=== PATIENT | male | born 1955 | race Caucasian/White ===

== ENCOUNTER → 2016-10-06 | Outpatient (CLI) | payer BC ==
[2016-10-07 14:16] LABS: Alternaria alternata IgE <0.35 kU/L (<0.35); Asperg. fumagatus IgE <0.35 kU/L (<0.35); Asperg. fumagatus IgE Class CLASS 0; Birch(Com.Silvr) IgE Class CLASS III; Cat Epith & Dander IgE <0.35 kU/L (<0.35); Cat Epith & Dander IgE Class CLASS 0; Clad herbarum IgE <0.35 kU/L (<0.35); Clad herbarum IgE Class CLASS 0; Common Ragweed IgE Class CLASS 0; Dermato. Pteronyssinus Class CLASS 0; Dermato. Pteronyssinus IgE <0.35 kU/L (<0.35); Dermato. farinae IgE <0.35 kU/L (<0.35); Dermato. farinae IgE Class CLASS 0; Maple (Box Elder) IgE <0.35 kU/L (<0.35); Maple (Box Elder) IgE Class CLASS 0; Mountain Cedar IgE <0.35 kU/L (<0.35); Mountain Cedar IgE Class CLASS 0; Mouse Urine IgE Class CLASS 0; Mouse Urine Proteins,IgE <0.35 kU/L (<0.35); Mulberry IgE Class CLASS 0; Nettle IgE <0.35 kU/L (<0.35); Nettle IgE Class CLASS 0; Oak IgE <0.35 kU/L (<0.35); Penicillium notatum IgE Class CLASS 0; Rough Marshelder IgE <0.35 kU/L (<0.35); Rough Marshelder IgE Class CLASS 0; Timothy Grass IgE <0.35 kU/L (<0.35); Timothy Grass IgE Class CLASS 0; White Ash IgE Class CLASS 0
== END | disposition home or self-care (01) ==
LOC: LABWHC1 16:56
PROVIDERS: ATTEND Internal Medicine Endocrinology, Diabetes & Metabolism
DX: J45.909 Unspecified asthma, uncomplicated (principal)
CPT/HCPCS: 36415; 82103; 82104; 82785; 86001; 86003; 86606; 86609

== ENCOUNTER → 2017-12-08 | Outpatient (CLI) | payer BC ==
--- NOTE | 2017-12-08 16:59 | XR ---
EXAMINATION TYPE: XR chest 2V DATE OF EXAM: 12/08/2017 COMPARISON: Prior chest x-ray 01/23/2016 HISTORY: Shortness of breath TECHNIQUE: Frontal and lateral views of the chest are obtained. FINDINGS: There is improved aeration at the left lung base. Prominent lung volumes are noted. Patien t is post median sternotomy. Cardiomediastinal silhouette, pulmonary vascularity and [place] are within normal limits. Prominent lung lines suggest underlying COPD. Biapical pleural thickening is stable. IMPRESSION: No acute cardiopulmonary process.
== END | disposition home or self-care (01) ==
LOC: RADXRMAIN 15:49
PROVIDERS: ATTEND Internal Medicine Pulmonary Disease
DX: R06.02 Shortness of breath (principal)
CPT/HCPCS: 71046

== ENCOUNTER 2019-12-23 16:14 | Emergency (ER) | payer BC ==
--- NOTE | 2019-12-23 16:31 | ED ---
Abdominal Pain HPI - General Chief Complaint: Abdominal Pain Stated Complaint: Abd Pain Time Seen by Provider: 12/23/19 16:30 Source: patient Mode of arrival: ambulatory Limitations: no limitations - History of Present Illness Initial Comments: Patient is 64-year-old male presenting to emergency Department with chief complaint of abdominal pain. Patient reports the pain started around noon today and is gradually increasing severity. Patient states the pain is constant and is located in the periumbilical region without any radiation. Patient states the pain is "intense". Does report mild nausea earlier but no vomiting. States he had a bowel movement prior to arrival. States the pain is not related to by mouth intake. Denies any chest pain or shortness of breath. Does report drinking alcohol occasionally. Denies hematuria, hematochezia or melena. Denies dysuria, urgency or frequency. Denies testicular swelling pain or penile discharge. Denies any night sweats fevers or chills. Denies previous abdominal surgeries. Patient states that 2 people at his workplace were diagnosed with Legionella over the last 2 weeks. He does report a cough states that is his baseline secondary to COPD. He denies any diarrhea. - Related Data Home Medications Medication Instructions Recorded Confirmed Atorvastatin [Lipitor] 80 mg PO HS 12/23/19 12/23/19 Budesonide [Pulmicort] 0.5 mg INHALATION RT-BID 12/23/19 12/23/19 Montelukast [Singulair] 10 mg PO DAILY 12/23/19 12/23/19 Tamsulosin [Flomax] 0.4 mg PO DAILY 12/23/19 12/23/19 Varenicline [Chantix Starter Pack] 0.5 mg PO BID 12/23/19 12/23/19 amLODIPine [Norvasc] 5 mg PO HS 12/23/19 12/23/19 lisinopriL [Zestril] 2.5 mg PO DAILY 12/23/19 12/23/19 Previous Rx's Medication Instructions Recorded Aspirin 81 mg PO DAILY #30 chew 01/05/16 Metoprolol Tartrate [Lopressor] 50 mg PO BID #60 tab 01/05/16 Allergies Allergy/AdvReac Type Severity Reaction Status Date / Time No Known Allergies Allergy Verified 12/23/19 17:31 Review of Systems ROS Statement: Those systems with pertinent positive or pertinent negative responses have been documented in the HPI. ROS Other: All systems not noted in ROS Statement are negative. Past Medical History Past Medical History: COPD, Hyperlipidemia Additional Past Medical History / Comment(s): Coronary artery disease with left main involvement History of Any Multi-Drug Resistant Organisms: None Reported Past Surgical History: Orthopedic Surgery Additional Past Surgical History / Comment(s): vasectomy, ganglion cyst removed from wrist Past Anesthesia/Blood Transfusion Reactions: No Reported Reaction Past Psychological History: No Psychological Hx Reported Smoking Status: Current every day smoker Past Alcohol Use History: Occasional Past Drug Use History: None Reported - Past Family History Mother Family Medical History: No Reported History General Exam Limitations: no limitations General appearance: alert, in no apparent distress Head exam: Present: atraumatic, normocephalic, normal inspection Eye exam: Present: normal appearance, PERRL, EOMI Pupils: Present: normal accommodation ENT exam: Present: normal exam, normal oropharynx, mucous membranes moist, TM's normal bilaterally, normal external ear exam Neck exam: Present: normal inspection, full ROM. Absent: tenderness Respiratory exam: Present: normal lung sounds bilaterally. Absent: respiratory distress, wheezes, rales Cardiovascular Exam: Present: regular rate, normal rhythm, normal heart sounds GI/Abdominal exam: Present: soft, distended (Mild distention), tenderness (. Umbilical tenderness), normal bowel sounds. Absent: guarding, rebound, rigid Extremities exam: Present: normal inspection, full ROM, normal capillary refill, other (+2 ulnar and radial pulses bilaterally.). Absent: tenderness Back exam: Present: normal inspection, full ROM. Absent: tenderness, CVA tenderness (R), CVA tenderness (L) Neurological exam: Present: alert, oriented X3, normal gait Psychiatric exam: Present: normal affect, normal mood Skin exam: Present: warm, dry, intact, normal color Course Vital Signs 12/23/19 12/23/19 16:22 19:00 Temperature 97.1 F L Pulse Rate 73 71 Respiratory 18 18 Rate Blood Pressure 180/92 149/91 O2 Sat by Pulse 100 97 Oximetry Medical Decision Making - Medical Decision Making Patient is 64-year-old male presenting to emergency Department with a chief complaint of abdominal pain. Patient does take Flomax daily for BPH. On physi michelle examination patient does have some periumbilical abdominal tenderness to palpation. CBC reveals mild leukocytosis. CMP is unremarkable. EKG shows sinus rhythm with occasional PVC. Initial troponin is negative. CT of abdomen and pelvis reveals an enlarged prostate along with bladder distention. Bladder scan revealed over 1 L of urine retention. Alvarado catheter was inserted and patient was given instructions on how to use it. Patient was also advised to follow-up with urologist. He was advised to continue taking the Flomax. On reevaluation, patient did improve symptomatically after the urine was drained. Chest x-ray shows minimal atelectasis at the left lung base. - Lab Data Result diagrams: 12/23/19 16:46 12/23/19 16:46 Lab Results 12/23/19 12/23/19 12/23/19 Range/Units 16:46 16:46 16:46 WBC 14.3 H (3.8-10.6) k/uL RBC 5.16 (4.30-5.90) m/uL Hgb 15.4 (13.0-17.5) gm/dL Hct 47.6 (39.0-53.0) % MCV 92.1 (80.0-100.0) fL MCH 29.9 (25.0-35.0) pg MCHC 32.4 (31.0-37.0) g/dL RDW 13.4 (11.5-15.5) % Plt Count 316 (150-450) k/uL Neutrophils % 79 % Lymphocytes % 14 % Monocytes % 5 % Eosinophils % 0 % Basophils % 1 % Neutrophils # 11.3 H (1.3-7.7) k/uL Lymphocytes # 2.0 (1.0-4.8) k/uL Monocytes # 0.8 (0-1.0) k/uL Eosinophils # 0.0 (0-0.7) k/uL Basophils # 0.1 (0-0.2) k/uL Sodium 134 L (137-145) mmol/L Potassium 4.7 (3.5-5.1) mmol/L Chloride 104 (98-107) mmol/L Carbon Dioxide 20 L (22-30) mmol/L Anion Gap 10 mmol/L BUN 19 (9-20) mg/dL Creatinine 0.94 (0.66-1.25) mg/dL Est GFR (CKD-EPI)AfAm >90 (>60 ml/min/1.73 sqM) Est GFR (CKD-EPI)NonAf 87 (>60 ml/min/1.73 sqM) Glucose 133 H (74-99) mg/dL Calcium 9.2 (8.4-10.2) mg/dL Total Bilirubin 0.5 (0.2-1.3) mg/dL AST 36 (17-59) U/L ALT 37 (4-49) U/L Alkaline Phosphatase 105 (38-126) U/L Troponin I (0.000-0.034) ng/mL Total Protein 7.5 (6.3-8.2) g/dL Albumin 4.3 (3.5-5.0) g/dL Amylase 67 (30-110) U/L Lipase 62 (23-300) U/L Urine Color Light Yellow Urine Appearance Clear (Clear) Urine pH 7.5 (5.0-8.0) Ur Specific [place] 1.018 (1.001-1.035) Urine Protein Negative (Negative) Urine Glucose (UA) Negative (Negative) Urine Ketones Negative (Negative) Urine Blood Negative (Negative) Urine Nitrite Negative (Negative) Urine Bilirubin Negative (Negative) Urine Urobilinogen <2.0 (<2.0) mg/dL Ur Leukocyte Esterase Negative (Negative) 12/23/19 Range/Units 16:46 WBC (3.8-10.6) k/uL RBC (4.30-5.90) m/uL Hgb (13.0-17.5) gm/dL Hct (39.0-53.0) % MCV (80.0-100.0) fL MCH (25.0-35.0) pg MCHC (31.0-37.0) g/dL RDW (11.5-15.5) % Plt Count (150-450) k/uL Neutrophils % % Lymphocytes % % Monocytes % % Eosinophils % % Basophils % % Neutrophils # (1.3-7.7) k/uL Lymphocytes # (1.0-4.8) k/uL Monocytes # (0-1.0) k/uL Eosinophils # (0-0.7) k/uL Basophils # (0-0.2) k/uL Sodium (137-145) mmol/L Potassium (3.5-5.1) mmol/L Chloride (98-107) mmol/L Carbon Dioxide (22-30) mmol/L Anion Gap mmol/L BUN (9-20) mg/dL Creatinine (0.66-1.25) mg/dL Est GFR (CKD-EPI)AfAm (>60 ml/min/1.73 sqM) Est GFR (CKD-EPI)NonAf (>60 ml/min/1.73 sqM) Glucose (74-99) mg/dL Calcium (8.4-10.2) mg/dL Total Bilirubin (0.2-1.3) mg/dL AST (17-59) U/L ALT (4-49) U/L Alkaline Phosphatase (38-126) U/L Troponin I <0.012 (0.000-0.034) ng/mL Total Protein (6.3-8.2) g/dL Albumin (3.5-5.0) g/dL Amylase (30-110) U/L Lipase (23-300) U/L Urine Color Urine Appearance (Clear) Urine pH (5.0-8.0) Ur Specific [place] (1.001-1.035) Urine Protein (Negative) Urine Glucose (UA) (Negative) Urine Ketones (Negative) Urine Blood (Negative) Urine Nitrite (Negative) Urine Bilirubin (Negative) Urine Urobilinogen (<2.0) mg/dL Ur Leukocyte Esterase (Negative) - EKG Data EKG Comments: Sinus rhythm with occasional PVC Ventricular rate 71, DC 174, QRS 90, QTC 419. 12/23/19 19:09 Sinus rhythm with occasional PVC. Ventricular rate 71, DC 174, QRS 90, QTC 419. Disposition Clinical Impression: Urinary retention, Abdominal pain Disposition: HOME SELF-CARE Condition: Stable Instructions (If sedation given, give patient instructions): Enlarged Prostate (BPH) (ED), Urinary Retention in Men (ED), Alvarado Catheter Removal (DC), Alvarado Catheter Placement and Care (ED) Additional Instructions: Follow-up with urologist. Follow proper instructions on Alvarado catheter. Return to emergency department if symptoms worsen. Is patient prescribed a controlled substance at d/c from ED?: No Referrals: Alison Zapata MD [Primary Care Provider] - 1-2 days Time of Disposition: 19:32
[2019-12-23] MEDS ORDERED: SODIUM CHLORIDE 0.9% 1,000 ML IV STA (16:41)
[2019-12-23] MEDS ORDERED: MORPHINE SULFATE 4 MG/ML SYRINGE IVP STA (16:42)
[2019-12-23] MEDS ORDERED: ONDANSETRON 4 MG/2 ML VIAL IVP STA (16:42)
[2019-12-23 16:56] LABS: Basophils # (A) 0.1 k/uL (0-0.2); Basophils % (A) 1 %; Eosinophils % (A) 0 %; HCT 47.6 % (39.0-53.0); HGB 15.4 gm/dL (13.0-17.5); Lymphocytes % (A) 14 %; MCH 29.9 pg (25.0-35.0); MCHC 32.4 g/dL (31.0-37.0); MCV 92.1 fL (80.0-100.0); Mean Platelet Volume 7.4; Monocytes # (A) 0.8 k/uL (0-1.0); Monocytes % (A) 5 %; Neutrophils # (A) 11.3 k/uL (1.3-7.7); Neutrophils % (A) 79 %; Platelet Count 316 k/uL (150-450); RBC 5.16 m/uL (4.30-5.90); RDW 13.4 % (11.5-15.5); WBC 14.3 k/uL (3.8-10.6)
[2019-12-23 17:11] LABS: Appearance,Urine Clear (Clear); Bilirubin,Urine Negative (Negative); Blood,Urine Negative (Negative); Color,Urine Light Yellow; Glucose,Urine (UA) Negative (Negative); Ketones,Urine Negative (Negative); Leukocyte Esterase,Urine Negative (Negative); Nitrite,Urine Negative (Negative); PH, Urine 7.5 (5.0-8.0); Protein,Urine Negative (Negative); Specific Gravity,Urine 1.018 (1.001-1.035); Urobilinogen,Urine <2.0 mg/dL (<2.0)
[2019-12-23 17:21] LABS: ALT 37 U/L (4-49); AST 36 U/L (17-59); African American GFR (CKD) >90 (>60 ml/min/1.73 sqM); Albumin 4.3 g/dL (3.5-5.0); Alkaline Phosphatase 105 U/L (38-126); Amylase 67 U/L (30-110); Anion Gap 10 mmol/L; Blood Urea Nitrogen 19 mg/dL (9-20); Calcium 9.2 mg/dL (8.4-10.2); Carbon Dioxide 20 mmol/L (22-30); Chloride 104 mmol/L (98-107); Glucose 133 mg/dL (74-99); Non-African American GFR(CKD) 87 (>60 ml/min/1.73 sqM); Sodium 134 mmol/L (137-145); Total Bilirubin 0.5 mg/dL (0.2-1.3); Total Protein 7.5 g/dL (6.3-8.2)
[2019-12-23 17:31] LABS: Potassium 4.7 mmol/L (3.5-5.1)
[2019-12-23] MEDS ORDERED: HYDROmorphone 0.5 MG/0.5 ML SYRINGE IVP STA (17:45)
--- NOTE | 2019-12-23 18:16 | XR ---
EXAMINATION TYPE: XR chest 2V DATE OF EXAM: 12/23/2019 COMPARISON: 12/08/2017 HISTORY: Short of breath TECHNIQUE: FINDINGS: There is some linear density at the lung bases. There are sternal wires. There are no hilar masses. Heart size is normal. Mediastinum is normal. Bony thorax is intact. IMPRESSION: There is some new mild atelectasis left lung base compared to old exam. Normal heart.
--- NOTE | 2019-12-23 18:20 | CT ---
EXAMINATION TYPE: CT abdomen pelvis w con DATE OF EXAM: 12/23/2019 COMPARISON: None HISTORY: Periumbilical abd pain, distention. CT DLP: 1332 mGycm Automated exposure control for dose reduction was used. CONTRAST: Performed with IV Contrast, patient injected with 100 mL of Isovue 300. Images obtained from the diaphragm to the floor the pelvis with IV contrast. FINDINGS: There is mild subsegmental atelectasis at the lung bases. Heart size is normal. Liver spleen pancreas gallbladder appear normal. Bile ducts are not dilated. There is no adrenal mass . Kidneys show satisfactory contrast opacification. There is no hydronephrosis. Delayed images show n ormal renal excretion. There is 1 cm cortical cyst lateral right kidney. There is no evidence of a so lid renal mass. Delayed images show normal renal excretion. There is no retroperitoneal adenopathy. Ureters are not dilated. Bladder distends smoothly. There is no inguinal hernia. There is no pelvic mass. There is no free fluid in the pelvis. Appendix is medial and appears normal. There is no ascites or free air. There is no bowel obstruction. There is no mese nteric edema. Lumbar vertebra have normal alignment. There is mild disc space narrowing and vacuum disc at L4-5 and L5-S1. There is posterior spurring of the endplates from L3 to S1. There is slight anterior wedging of T12 and T11 of 10%. This appears old. Urinary bladder is enlarged and measures 15 cm in length. Th e prostate measures 5.6 cm. Abdominal aorta is atheromatous. The bony pelvis is intact. The hip joint s are intact. IMPRESSION: Atherosclerotic vascular disease. Normal appendix. Dilated urinary bladder with prostate enlargement and consistent with some degree of bladder outlet o bstruction.
[2019-12-23 19:37] VITALS: BP 164/86; PULSE 86; RESP 16; TEMP 98
== END 2019-12-23 20:05 | disposition home or self-care (01) ==
LOC: EC 16:14
DX: N40.1 Benign prostatic hyperplasia with lower urinary tract symptoms (principal); R33.8 Other retention of urine; R10.33 Periumbilical pain; D72.829 Elevated white blood cell count, unspecified; N32.89 Other specified disorders of bladder; J98.11 Atelectasis; J44.9 Chronic obstructive pulmonary disease, unspecified; E78.5 Hyperlipidemia, unspecified; I25.10 Atherosclerotic heart disease of native coronary artery without angina pectoris; F17.200 Nicotine dependence, unspecified, uncomplicated; Z79.899 Other long term (current) drug therapy; Z79.51 Long term (current) use of inhaled steroids
CPT/HCPCS: 36415; 93005; 80053; 82150; 83690; 84484; 85025; 81003; 71046; 74177; 99285; 51702; 96374; 96375 ×2; 96361; J2270; J2405; J1170; Q9967

== ENCOUNTER 2020-06-04 10:29 | Emergency (ER) | payer BC ==
[2020-06-04] MEDS ORDERED: KETOROLAC 15 MG/ML 1 ML VIAL IVP STA (11:16)
[2020-06-04] MEDS ORDERED: SODIUM CHLORIDE 0.9% 1,000 ML IV STA (11:16)
--- NOTE | 2020-06-04 12:02 | ED ---
Abdominal Pain HPI - General Chief Complaint: Abdominal Pain Stated Complaint: Abd pain/nausea Time Seen by Provider: 06/04/20 10:54 Source: patient, RN notes reviewed Mode of arrival: ambulatory Limitations: no limitations - History of Present Illness Initial Comments: This a 65-year-old male presents emergency Department chief complaint abdominal pain. Patient states that he has slight stomachache yesterday worsened today. Patient had nausea no vomiting no diarrhea no constipation. Patient denies any fevers or chills. Patient states he feels like cramping in his abdomen. Patient states nothing is really making it feel better states is worse with some movement. No chest pain or shortness of breath no prior abdominal surgeries. - Related Data Home Medications Medication Instructions Recorded Confirmed Atorvastatin [Lipitor] 80 mg PO HS 12/23/19 06/04/20 Budesonide [Pulmicort] 0.5 mg INHALATION RT-BID 12/23/19 06/04/20 Montelukast [Singulair] 10 mg PO DAILY 12/23/19 06/04/20 Tamsulosin [Flomax] 0.4 mg PO BID 12/23/19 06/04/20 amLODIPine [Norvasc] 5 mg PO HS 12/23/19 06/04/20 lisinopriL [Zestril] 2.5 mg PO DAILY 12/23/19 06/04/20 Finasteride [Proscar] 5 mg PO DAILY 06/04/20 06/04/20 Ipratropium-Albuterol Nebulize 3 ml INHALATION RT-QID 06/04/20 06/04/20 [Duoneb 0.5 mg-3 mg/3 ml Soln] Varenicline Tartrate [Chantix 1 mg PO BID 06/04/20 06/04/20 Continuing Pack] Previous Rx's Medication Instructions Recorded Aspirin 81 mg PO DAILY #30 chew 01/05/16 Metoprolol Tartrate [Lopressor] 50 mg PO BID #60 tab 01/05/16 Allergies Allergy/AdvReac Type Severity Reaction Status Date / Time No Known Allergies Allergy Verified 06/04/20 12:16 Review of Systems ROS Statement: Those systems with pertinent positive or pertinent negative responses have been documented in the HPI. ROS Other: All systems not noted in ROS Statement are negative. Past Medical History Past Medical History: COPD, Hyperlipidemia Additional Past Medical History / Comment(s): Coronary artery disease with left main involvement History of Any Multi-Drug Resistant Organisms: None Reported Past Surgical History: Orthopedic Surgery Additional Past Surgical History / Comment(s): vasectomy, ganglion cyst removed from wrist Past Anesthesia/Blood Transfusion Reactions: No Reported Reaction Past Psychological History: No Psychological Hx Reported Smoking Status: Former smoker Past Alcohol Use History: Occasional Past Drug Use History: None Reported - Past Family History Mother Family Medical History: No Reported History General Exam Limitations: no limitations General appearance: alert, in no apparent distress Head exam: Present: atraumatic, normocephalic, normal inspection Eye exam: Present: normal appearance, PERRL, EOMI. Absent: scleral icterus, conjunctival injection, periorbital swelling ENT exam: Present: normal exam, normal oropharynx, mucous membranes moist Neck exam: Present: normal inspection, full ROM. Absent: tenderness, meningismus, lymphadenopathy Respiratory exam: Present: normal lung sounds bilaterally. Absent: respiratory distress, wheezes, rales, rhonchi, stridor Cardiovascular Exam: Present: regular rate, normal rhythm, normal heart sounds. Absent: systolic murmur, diastolic murmur, rubs, gallop, clicks GI/Abdominal exam: Present: soft, tenderness, normal bowel sounds. Absent: distended, guarding, rebound, rigid Back exam: Absent: CVA tenderness (R), CVA tenderness (L) Neurological exam: Present: alert Skin exam: Present: warm, dry, intact, normal color. Absent: rash Course Vital Signs 06/04/20 06/04/20 10:43 12:50 Temperature 97.3 F L Pulse Rate 70 Respiratory 16 18 Rate Blood Pressure 117/74 O2 Sat by Pulse 97 Oximetry Medical Decision Making - Medical Decision Making Patient presented for abdominal pain labs reveal any significant abnormalities. Patient CT shows distended bladder patient urinated but continues to have nearly 1 L of urine on bladder scan. Patient will have Alvarado catheter placed and discharged with follow-up with his urologist. - Lab Data Result diagrams: 06/04/20 11:54 06/04/20 11:54 Lab Results 06/04/20 06/04/20 06/04/20 Range/Units 11:54 11:54 11:54 WBC 10.9 H (3.8-10.6) k/uL RBC 5.35 (4.30-5.90) m/uL Hgb 15.9 (13.0-17.5) gm/dL Hct 47.2 (39.0-53.0) % MCV 88.1 (80.0-100.0) fL MCH 29.6 (25.0-35.0) pg MCHC 33.7 (31.0-37.0) g/dL RDW 13.8 (11.5-15.5) % Plt Count 274 (150-450) k/uL MPV 7.6 Neutrophils % 70 % Lymphocytes % 17 % Monocytes % 8 % Eosinophils % 2 % Basophils % 0 % Neutrophils # 7.7 (1.3-7.7) k/uL Lymphocytes # 1.9 (1.0-4.8) k/uL Monocytes # 0.9 (0-1.0) k/uL Eosinophils # 0.2 (0-0.7) k/uL Basophils # 0.1 (0-0.2) k/uL Sodium 135 L (137-145) mmol/L Potassium 5.0 (3.5-5.1) mmol/L Chloride 103 (98-107) mmol/L Carbon Dioxide 25 (22-30) mmol/L Anion Gap 7 mmol/L BUN 18 (9-20) mg/dL Creatinine 0.87 (0.66-1.25) mg/dL Est GFR (CKD-EPI)AfAm >90 (>60 ml/min/1.73 sqM) Est GFR (CKD-EPI)NonAf >90 (>60 ml/min/1.73 sqM) Glucose 109 H (74-99) mg/dL Plasma Lactic Acid [place] (0.7-2.0) mmol/L Calcium 9.8 (8.4-10.2) mg/dL Total Bilirubin 1.1 (0.2-1.3) mg/dL AST 270 H (17-59) U/L ALT 182 H (4-49) U/L Alkaline Phosphatase 109 (38-126) U/L Total Protein 7.3 (6.3-8.2) g/dL Albumin 4.1 (3.5-5.0) g/dL Amylase 70 (30-110) U/L Lipase 66 (23-300) U/L Urine Color Light Yellow Urine Appearance Clear (Clear) Urine pH 7.0 (5.0-8.0) Ur Specific [place] 1.005 (1.001-1.035) Urine Protein Negative (Negative) Urine Glucose (UA) Negative (Negative) Urine Ketones Negative (Negative) Urine Blood Negative (Negative) Urine Nitrite Negative (Negative) Urine Bilirubin Negative (Negative) Urine Urobilinogen <2.0 (<2.0) mg/dL Ur Leukocyte Esterase Negative (Negative) 06/04/20 Range/Units 11:54 WBC (3.8-10.6) k/uL RBC (4.30-5.90) m/uL Hgb (13.0-17.5) gm/dL Hct (39.0-53.0) % MCV (80.0-100.0) fL MCH (25.0-35.0) pg MCHC (31.0-37.0) g/dL RDW (11.5-15.5) % Plt Count (150-450) k/uL MPV Neutrophils % % Lymphocytes % % Monocytes % % Eosinophils % % Basophils % % Neutrophils # (1.3-7.7) k/uL Lymphocytes # (1.0-4.8) k/uL Monocytes # (0-1.0) k/uL Eosinophils # (0-0.7) k/uL Basophils # (0-0.2) k/uL Sodium (137-145) mmol/L Potassium (3.5-5.1) mmol/L Chloride (98-107) mmol/L Carbon Dioxide (22-30) mmol/L Anion Gap mmol/L BUN (9-20) mg/dL Creatinine (0.66-1.25) mg/dL Est GFR (CKD-EPI)AfAm (>60 ml/min/1.73 sqM) Est GFR (CKD-EPI)NonAf (>60 ml/min/1.73 sqM) Glucose (74-99) mg/dL Plasma Lactic Acid [place] 1.3 (0.7-2.0) mmol/L Calcium (8.4-10.2) mg/dL Total Bilirubin (0.2-1.3) mg/dL AST (17-59) U/L ALT (4-49) U/L Alkaline Phosphatase (38-126) U/L Total Protein (6.3-8.2) g/dL Albumin (3.5-5.0) g/dL Amylase (30-110) U/L Lipase (23-300) U/L Urine Color Urine Appearance (Clear) Urine pH (5.0-8.0) Ur Specific [place] (1.001-1.035) Urine Protein (Negative) Urine Glucose (UA) (Negative) Urine Ketones (Negative) Urine Blood (Negative) Urine Nitrite (Negative) Urine Bilirubin (Negative) Urine Urobilinogen (<2.0) mg/dL Ur Leukocyte Esterase (Negative) Disposition Clinical Impression: Urinary retention, Abdominal pain Disposition: HOME SELF-CARE Condition: Stable Instructions (If sedation given, give patient instructions): Urinary Retention in Men (ED) Additional Instructions: Please return to the Emergency Department if symptoms worsen or any other concerns. Is patient prescribed a controlled substance at d/c from ED?: No Referrals: Zoë Benedict PAC [Primary Care Provider] - 1-2 days Noah Win MD [STAFF PHYSICIAN] - 1-2 days Time of Disposition: 13:47
[2020-06-04 12:15] LABS: Basophils # (A) 0.1 k/uL (0-0.2); Basophils % (A) 0 %; Eosinophils # (A) 0.2 k/uL (0-0.7); Eosinophils % (A) 2 %; HCT 47.2 % (39.0-53.0); HGB 15.9 gm/dL (13.0-17.5); Lymphocytes # (A) 1.9 k/uL (1.0-4.8); Lymphocytes % (A) 17 %; MCH 29.6 pg (25.0-35.0); MCHC 33.7 g/dL (31.0-37.0); MCV 88.1 fL (80.0-100.0); Mean Platelet Volume 7.6; Monocytes # (A) 0.9 k/uL (0-1.0); Monocytes % (A) 8 %; Neutrophils # (A) 7.7 k/uL (1.3-7.7); Neutrophils % (A) 70 %; Platelet Count 274 k/uL (150-450); RBC 5.35 m/uL (4.30-5.90); RDW 13.8 % (11.5-15.5); WBC 10.9 k/uL (3.8-10.6)
[2020-06-04 12:25] LABS: Appearance,Urine Clear (Clear); Bilirubin,Urine Negative (Negative); Blood,Urine Negative (Negative); Color,Urine Light Yellow; Glucose,Urine (UA) Negative (Negative); Ketones,Urine Negative (Negative); Leukocyte Esterase,Urine Negative (Negative); Nitrite,Urine Negative (Negative); Protein,Urine Negative (Negative); Specific Gravity,Urine 1.005 (1.001-1.035); Urobilinogen,Urine <2.0 mg/dL (<2.0)
[2020-06-04 12:26] LABS: ALT 182 U/L (4-49); African American GFR (CKD) >90 (>60 ml/min/1.73 sqM); Albumin 4.1 g/dL (3.5-5.0); Amylase 70 U/L (30-110); Anion Gap 7 mmol/L; Blood Urea Nitrogen 18 mg/dL (9-20); Calcium 9.8 mg/dL (8.4-10.2); Carbon Dioxide 25 mmol/L (22-30); Chloride 103 mmol/L (98-107); Glucose 109 mg/dL (74-99); Lipase 66 U/L (23-300); Non-African American GFR(CKD) >90 (>60 ml/min/1.73 sqM); Sodium 135 mmol/L (137-145); Total Bilirubin 1.1 mg/dL (0.2-1.3); Total Protein 7.3 g/dL (6.3-8.2)
[2020-06-04 12:41] LABS: AST 270 U/L (17-59); Alkaline Phosphatase 109 U/L (38-126)
--- NOTE | 2020-06-04 13:30 | CT ---
EXAMINATION TYPE: CT abdomen pelvis w con DATE OF EXAM: 06/04/2020 COMPARISON: Prior CT 12/23/2019 HISTORY: Sudden onset mid abd pain CT DLP: 1283.2 mGycm Automated exposure control for dose reduction was used. TECHNIQUE: Helical acquisition of images from the lung bases through the pelvis have been completed. CONTRAST: Performed without Oral Contrast and with IV Contrast, patient injected with 100 mL of Isovue 300. FINDINGS: There is a small hiatal hernia. Lipoma is present over the anterior abdominal wall anterola terally, axial image 18 of the right upper quadrant level LUNG BASES: No significant abnormality is appreciated. AORTA: Atherosclerotic calcifications are dense along the aorta iliac distribution extending into th e common femoral arteries and proximal lower extremity arteries. LIVER/GB: No significant abnormality is appreciated, there may be a component of hepatic steatosis. PANCREAS: No significant abnormality is seen. SPLEEN: No significant abnormality is seen. ADRENALS: No significant abnormality is seen. KIDNEYS: No significant abnormality is seen. REPRODUCTIVE ORGANS: Enlarged prostate causing inferior impression on the urinary bladder is noted BOWEL: There is a duodenal diverticulum. The appendix is normal. FREE AIR: No Free Air visible. ASCITES: None visible. PELVIC ADENOPATHY: None visualized. RETROPERITONEAL ADENOPATHY: No Retroperitoneal Adenopathy visible. URINARY BLADDER: Distended. OSSEOUS STRUCTURES: There is a spinal curvature. Degenerative disc changes and facet arthropathy not ed in the visualized spine. IMPRESSION: URINARY BLADDER IS DISTENDED, THERE IS ENLARGED PROSTATE.
[2020-06-04 15:02] VITALS: BP 137/77; PULSE 64; RESP 19; TEMP 98.1
== END 2020-06-04 15:02 | disposition home or self-care (01) ==
LOC: EC 10:29
DX: R33.9 Retention of urine, unspecified (principal); R10.9 Unspecified abdominal pain; J44.9 Chronic obstructive pulmonary disease, unspecified; E78.5 Hyperlipidemia, unspecified; I25.10 Atherosclerotic heart disease of native coronary artery without angina pectoris; Z87.891 Personal history of nicotine dependence
CPT/HCPCS: 51798; 36415; 80053; 82150; 83605; 83690; 85025; 81003; 74177; 99284; 96374; 96361; J1885; Q9967; 90471

== ENCOUNTER 2021-06-25 15:51 | Emergency (ER) | payer BC ==
[2021-06-25 16:28] VITALS: RESP 18
--- NOTE | 2021-06-25 18:27 | XR ---
PROCEDURE: XR hand complete RT - 3V DATE AND TIME: 06/25/2021 5:46 PM CLINICAL INDICATION: Pain and swelling, possible bug bite TECHNIQUE: Department protocol COMPARISON: None FINDINGS: There is soft tissue swelling. There is no soft tissue emphysema, and no radiopaque foreign body. The bones and joints are unremarkable. IMPRESSION: Soft tissue swelling.
--- NOTE | 2021-06-25 19:14 | ED ---
Skin/Abscess/FB HPI - General Chief complaint: Skin/Abscess/Foreign Body Stated complaint: R hand insect bite Time Seen by Provider: 06/25/21 18:00 Source: patient, RN notes reviewed Mode of arrival: ambulatory Limitations: no limitations - History of Present Illness Initial comments: 66-year-old male who believes he was bit by an insect on a backboard with right hand 4 days ago he was seen in outpatient clinic placed on cephalexin he states wasn't getting better he follow-up again today he had a shot of steroids and was placed also on doxycycline. He took 1 dose thus far. No fevers chills nausea vomiting sweats he states he has had some drainage out of it. complaint: insect bite/sting - Related Data Home Medications Medication Instructions Recorded Confirmed Atorvastatin [Lipitor] 80 mg PO HS 12/23/19 06/04/20 Budesonide [Pulmicort] 0.5 mg INHALATION RT-BID 12/23/19 06/04/20 Montelukast [Singulair] 10 mg PO DAILY 12/23/19 06/04/20 Tamsulosin [Flomax] 0.4 mg PO BID 12/23/19 06/04/20 amLODIPine [Norvasc] 5 mg PO HS 12/23/19 06/04/20 lisinopriL [Zestril] 2.5 mg PO DAILY 12/23/19 06/04/20 Finasteride [Proscar] 5 mg PO DAILY 06/04/20 06/04/20 Ipratropium-Albuterol Nebulize 3 ml INHALATION RT-QID 06/04/20 06/04/20 [Duoneb 0.5 mg-3 mg/3 ml Soln] Varenicline Tartrate [Chantix 1 mg PO BID 06/04/20 06/04/20 Continuing Pack] Previous Rx's Medication Instructions Recorded Aspirin 81 mg PO DAILY #30 chew 01/05/16 Metoprolol Tartrate [Lopressor] 50 mg PO BID #60 tab 01/05/16 Allergies Allergy/AdvReac Type Severity Reaction Status Date / Time No Known Allergies Allergy Verified 06/25/21 16:28 Review of Systems ROS Statement: Those systems with pertinent positive or pertinent negative responses have been documented in the HPI. ROS Other: All systems not noted in ROS Statement are negative. Past Medical History Past Medical History: COPD, Hyperlipidemia Additional Past Medical History / Comment(s): Coronary artery disease with left main involvement History of Any Multi-Drug Resistant Organisms: None Reported Past Surgical History: Orthopedic Surgery Additional Past Surgical History / Comment(s): vasectomy, ganglion cyst removed from wrist Past Anesthesia/Blood Transfusion Reactions: No Reported Reaction Past Psychological History: No Psychological Hx Reported Smoking Status: Former smoker Past Alcohol Use History: Occasional Past Drug Use History: None Reported - Past Family History Mother Family Medical History: No Reported History General Exam - General Exam Comments Initial Comments: This is a well-developed well-nourished awake alert oriented times 3 male Limitations: no limitations General appearance: alert, in no apparent distress Head exam: Present: atraumatic, normocephalic, normal inspection Neck exam: Present: full ROM Extremities exam: Present: full ROM, normal capillary refill, other (Examination of the hand on the right side reveals evidence of possible insect bite no foreign body seen. Some localized erythema no lymphangitis no drainage at this time no palpable masses no fluctuance. No sensorimotor or vascular deficits.) Psychiatric exam: Present: normal affect, normal mood Skin exam: Present: warm, dry, other (As above). Absent: normal color Course Vital Signs 06/25/21 16:25 Temperature 98.1 F Pulse Rate 75 Respiratory 18 Rate Blood Pressure 162/81 O2 Sat by Pulse 95 Oximetry Medical Decision Making - Medical Decision Making I did a long discussion with the patient he is on appropriate medication at this time we did discuss wound care and caution with respect to her restrictive clothing and friction. I did recommend elevation and warm moist compresses. He is following up with his doctor return when necessary also did recommend [id number] ibuprofen when necessary - Radiology Data Radiology results: report reviewed (Imaging reviewed no evidence or body evidence of soft tissue swelling is noted. No evidence of any gaseous formation), image reviewed Disposition Clinical Impression: Encounter for wound re-check Disposition: HOME SELF-CARE Condition: Good Instructions (If sedation given, give patient instructions): Insect Bite or Sting (ED), Cellulitis (ED) Additional Instructions: Continue with current medications as prescribed. Also elevated right hand avoid excessive friction or clothing over the site. Is patient prescribed a controlled substance at d/c from ED?: No Referrals: Alison Zapata MD [Primary Care Provider] - 1-2 days Decision Date: 06/25/21 Decision Time: 19:14
[2021-06-25 19:22] VITALS: BP 158/78; PULSE 72; TEMP 98.2
== END 2021-06-25 19:20 | disposition home or self-care (01) ==
LOC: EC 15:51
DX: Z48.00 Encounter for change or removal of nonsurgical wound dressing (principal); J44.9 Chronic obstructive pulmonary disease, unspecified; E78.5 Hyperlipidemia, unspecified; Z79.51 Long term (current) use of inhaled steroids; Z87.891 Personal history of nicotine dependence; Z79.899 Other long term (current) drug therapy
CPT/HCPCS: 99283

== ENCOUNTER → 2022-07-26 | Outpatient (CLI) | payer BC ==
--- NOTE | 2022-07-26 16:26 | CT ---
EXAMINATION TYPE: CT chest wo con DATE OF EXAM: 07/26/2022 COMPARISON: 01/13/2018 HISTORY: Asthma, COPD CT DLP: [address] of the chest was performed with lung and mediastinal window settings submitted. The la ck of contrast limits evaluation of the vascular, mediastinal and parenchymal structures including th e upper abdomen. LUNGS: Moderate paraseptal emphysema within the upper lobes. The lungs are clear and free of infiltra te. No atelectasis. No pulmonary nodule or mass is detected. No pleural effusion. No CT evidence o f interstitial lung disease. MEDIASTINUM/MODESTO: Thoracic aorta is of normal caliber with limited evaluation given lack of contrast . The heart is not enlarged. Median sternotomy change. Changes of CABG. No evidence for mediastinal mass. No lymph nodes greater than 1cm. UPPER ABDOMEN: No significant abnormality is seen. OTHER: No significant other abnormality. IMPRESSION: 1. Moderate paraseptal emphysema within the upper lobes.
== END | disposition home or self-care (01) ==
LOC: RADCTMAIN 15:49
PROVIDERS: ATTEND Internal Medicine Pulmonary Disease
DX: J43.8 Other emphysema (principal); I25.10 Atherosclerotic heart disease of native coronary artery without angina pectoris; E66.9 Obesity, unspecified; Z72.0 Tobacco use
CPT/HCPCS: 71250

== ENCOUNTER 2023-03-01 20:26 | Emergency (ER) | payer BC ==
--- NOTE | 2023-03-01 20:42 | ED ---
General Adult HPI - General Source: patient, RN notes reviewed Mode of arrival: ambulatory Limitations: no limitations <Baldemar Lewis - Last Filed: 03/01/23 20:41> <Keyla Rodriguez - Last Filed: 03/02/23 06:14> - General Stated complaint: Abd pain Time Seen by Provider: 03/01/23 20:41 - History of Present Illness Initial comments: 67-year-old male presents emergency department to complaint of severe abdominal pain. Patient states sudden onset of chronic 30. Patient complains of mid abdominal pain. He's had no prior abdominal surgeries states pain rates from across his abdomen. Does admit to nausea vomiting. Denies chest pain or shortness of breath he does have prior cardiac history including triple bypass, history of COPD he denies any history kidney stones no dysuria patient offers no other complaints. (Baldemar Lewis) - Related Data Home Medications Medication Instructions Recorded Confirmed Atorvastatin [Lipitor] 80 mg PO HS 12/23/19 06/04/20 Budesonide [Pulmicort] 0.5 mg INHALATION RT-BID 12/23/19 06/04/20 Montelukast [Singulair] 10 mg PO DAILY 12/23/19 06/04/20 Tamsulosin [Flomax] 0.4 mg PO BID 12/23/19 06/04/20 amLODIPine [Norvasc] 5 mg PO HS 12/23/19 06/04/20 lisinopriL [Zestril] 2.5 mg PO DAILY 12/23/19 06/04/20 Finasteride [Proscar] 5 mg PO DAILY 06/04/20 06/04/20 Ipratropium-Albuterol Nebulize 3 ml INHALATION RT-QID 06/04/20 06/04/20 [Duoneb 0.5 mg-3 mg/3 ml Soln] Varenicline Tartrate [Chantix 1 mg PO BID 06/04/20 06/04/20 Continuing Pack] Previous Rx's Medication Instructions Recorded Aspirin 81 mg PO DAILY #30 chew 01/05/16 Metoprolol Tartrate [Lopressor] 50 mg PO BID #60 tab 01/05/16 Pantoprazole [Protonix] 40 mg PO DAILY #30 tab 03/02/23 Sucralfate [Carafate] 1 gm PO ACHS #60 tab 03/02/23 Sucralfate [Carafate] 1 gm PO ACHS #600 ml 03/02/23 Allergies Allergy/AdvReac Type Severity Reaction Status Date / Time No Known Allergies Allergy Verified 03/01/23 20:44 Review of Systems ROS Other: All systems not noted in ROS Statement are negative. <Baldemar Lewis - Last Filed: 03/01/23 20:41> ROS Other: All systems not noted in ROS Statement are negative. <Keyla Rodriguez P - Last Filed: 03/02/23 06:14> ROS Statement: Those systems with pertinent positive or pertinent negative responses have been documented in the HPI. Past Medical History Past Medical History: COPD, Hyperlipidemia Additional Past Medical History / Comment(s): Coronary artery disease with left main involvement History of Any Multi-Drug Resistant Organisms: None Reported Past Surgical History: Orthopedic Surgery Additional Past Surgical History / Comment(s): vasectomy, ganglion cyst removed from wrist Past Anesthesia/Blood Transfusion Reactions: No Reported Reaction Past Psychological History: No Psychological Hx Reported Smoking Status: Former smoker Past Alcohol Use History: Occasional Past Drug Use History: None Reported - Past Family History Mother Family Medical History: No Reported History <Baldemar Lewis - Last Filed: 03/01/23 20:41> General Exam <Baldemar Lewis - Last Filed: 03/01/23 20:41> General appearance: alert Head exam: Present: atraumatic Eye exam: Present: normal appearance ENT exam: Present: normal exam Respiratory exam: Absent: respiratory distress Cardiovascular Exam: Present: regular rate GI/Abdominal exam: Present: soft, tenderness. Absent: distended, guarding, rebound, rigid Rectal exam: Present: deferred Neurological exam: Present: alert, oriented X3 Psychiatric exam: Present: normal affect, normal mood Skin exam: Present: warm, dry <Keyla Rodriguez - Last Filed: 03/02/23 06:14> - General Exam Comments Initial Comments: Visual Physical Exam Vital signs reviewed General: Well-appearing, nontoxic, no acute distress. Head: Normocephalic, atraumatic Eyes: PERRLA, EOMI ENT: Airway patent Chest: Nonlabored breathing Skin: No visual rash, normal skin tone Neuro: Alert and oriented 3 Musculoskeletal: No gross abnormalities (Baldemar Lewis) Course Vital Signs 03/01/23 03/02/23 20:40 05:19 Temperature 97.9 F Pulse Rate 70 90 Respiratory 18 18 Rate Blood Pressure 188/92 155/81 O2 Sat by Pulse 97 93 L Oximetry Medical Decision Making <Baldemar Lewis - Last Filed: 03/01/23 20:41> - Lab Data Result diagrams: 03/01/23 20:56 03/01/23 20:56 <Keyla Rodriguez P - Last Filed: 03/02/23 06:14> - Medical Decision Making I completed the quick note portion of this chart signed Baldemar Lewis PA-C (Baldemar Lewis) Was pt. sent in by a medical professional or institution (, PA, TYPING POOL SUPERVISOR, urgent care, hospital, or care home...) When possible be specific @ -No Did you speak to anyone other than the patient for history (EMS, parent, family, police, friend...)? What history was obtained from this source @ - Did you review nursing and triage notes (agree or disagree)? Why? @ -I reviewed and agree with nursing and triage notes Were old charts reviewed (outside hosp., previous admission, EMS record, old EKG, old radiological studies, urgent care reports/EKG's, care home records)? Report findings @ -No old charts were reviewed Differential Diagnosis (chest pain, altered mental status, abdominal pain women, abdominal pain men, vaginal bleeding, weakness, fever, dyspnea, syncope, headache, dizziness, GI bleed, back pain, seizure, CVA, palpatations, mental health)? @ Differential Abdominal Pain Men: Appendicitis, cholecystitis, diverticulosis, ischemic bowel, pancreatitis, hepatitis, UTI, gastroenteritis, AAA, incarcerated hernia, bowel obstruction, constipation, inflammatory bowel, hepatitis, peptic ulcer disease, splenic infarction, perforated viscus, testicular torsion, this is not meant to be an all-inclusive list EKG interpreted by me (3pts min.). @ -As above X-rays interpreted by me (1pt min.). @ -None done CT interpreted by me (1pt min.). @ -No free air no significant inflammatory changes U/S interpreted by me (1pt. min.). @ -None done What testing was considered but not performed or refused? (CT, X-rays, U/S, labs)? Why? @ -None What meds were considered but not given or refused? Why? @ -None Did you discuss the management of the patient with other professionals (professionals i.e. , PA, TYPING POOL SUPERVISOR, lab, RT, psych nurse, social work program coordinator, public policy professor, teacher, labor relations officer, rehabilitation caseworker)? Give summary @ -No Was smoking cessation discussed for >3mins.? @ -No Was critical care preformed (if so, how long)? @ -No Were there social determinants of health that impacted care today? How? (Homelessness, low income, unemployed, alcoholism, drug addiction, transportation, low edu. Level, literacy, decrease access to med. care, detention, rehab)? @ -No Was there de-escalation of care discussed even if they declined (Discuss DNR or withdrawal of care, Hospice)? DNR status @ -No What co-morbidities impacted this encounter? (DM, HTN, Smoking, COPD, CAD, Cancer, CVA, ARF, Chemo, Hep., AIDS, mental health diagnosis, sleep apnea, morbid obesity)? @ -None Was patient admitted / discharged? Hospital course, mention meds given and route, prescriptions, significant lab abnormalities, going to OR and other pertinent info. @ Discharge Was initiated in the triage bay patient did lab work and computed tomography scan all of which were unremarkable on my exam patient continues to have burning epigastric pain he was treated with a GI cocktail and reported nearly immediate improvement in his pain he was also given morphine. Upon reevaluation his pain was down to 0 he is feeling much better as comfortable plan for discharge home with Protonix and Carafate. I did provide the patient with Bria for both Carafate Suspension and advised him that if his insurance does not cover this certain it was very pricey he can get the Carafate tablets. Undiagnosed new problem with uncertain prognosis? @ -No Drug Therapy requiring intensive monitoring for toxicity (Heparin, Nitro, Insulin, Cardizem)? @ -No Were any procedures done? @ -No Diagnosis/symptom? @ -Gastritis Acute, or Chronic, or Acute on Chronic? @ -default Uncomplicated (without systemic symptoms) or Complicated (systemic symptoms)? @ -default Side effects of treatment? @ -No Exacerbation, Progression, or Severe Exacerbation? @ -No Poses a threat to life or bodily function? How? (Chest pain, [place], [place], pneumonia, PE, COPD, DKA, ARF, appy, cholecystitis, CVA, Diverticulitis, Homicidal, Suicidal, threat to staff... and all critical care pts) @ -No (Keyla Rodriguez) - Lab Data Lab Results 03/01/23 03/01/23 03/01/23 Range/Units 20:56 20:56 20:56 WBC 11.6 H (3.8-10.6) k/uL RBC 5.40 (4.30-5.90) m/uL Hgb 16.2 (13.0-17.5) gm/dL Hct 49.4 (39.0-53.0) % MCV 91.4 (80.0-100.0) fL MCH 30.1 (25.0-35.0) pg MCHC 32.9 (31.0-37.0) g/dL RDW 14.0 (11.5-15.5) % Plt Count 299 (150-450) k/uL MPV 8.0 Neutrophils % (Manual) 68 % Band Neuts % (Manual) 1 % Lymphocytes % (Manual) 18 % Monocytes % (Manual) 12 % Eosinophils % (Manual) 1 % Neutrophils # (Manual) 8.00 H (1.3-7.7) k/uL Lymphocytes # (Manual) 2.09 (1.0-4.8) k/uL Monocytes # (Manual) 1.39 H (0-1.0) k/uL Eosinophils # (Manual) 0.12 (0-0.7) k/uL Nucleated RBCs 0 (0-0) /100 WBC Manual Slide Review Performed RBC Morphology Normal Sodium 136 L (137-145) mmol/L Potassium 5.1 (3.5-5.1) mmol/L Chloride 101 (98-107) mmol/L Carbon Dioxide 24 (22-30) mmol/L Anion Gap 11 mmol/L BUN 25 H (9-20) mg/dL Creatinine 0.88 (0.66-1.25) mg/dL Est GFR (CKD-EPI)AfAm >90 (>60 ml/min/1.73 sqM) Est GFR (CKD-EPI)NonAf >90 (>60 ml/min/1.73 sqM) Glucose 134 H (74-99) mg/dL Plasma Lactic Acid [place] (0.7-2.0) mmol/L Calcium 10.0 (8.4-10.2) mg/dL Total Bilirubin 0.3 (0.2-1.3) mg/dL AST 38 (17-59) U/L ALT 43 (4-49) U/L Alkaline Phosphatase 107 (38-126) U/L Total Protein 7.4 (6.3-8.2) g/dL Albumin 4.3 (3.5-5.0) g/dL Amylase 86 (30-110) U/L Lipase 117 (23-300) U/L Urine Color Colorless Urine Appearance Clear (Clear) Urine pH 6.5 (5.0-8.0) Ur Specific [place] 1.017 (1.001-1.035) Urine Protein Negative (Negative) Urine Glucose (UA) Negative (Negative) Urine Ketones Negative (Negative) Urine Blood Negative (Negative) Urine Nitrite Negative (Negative) Urine Bilirubin Negative (Negative) Urine Urobilinogen <2.0 (<2.0) mg/dL Ur Leukocyte Esterase Negative (Negative) 03/01/23 Range/Units 20:56 WBC (3.8-10.6) k/uL RBC (4.30-5.90) m/uL Hgb (13.0-17.5) gm/dL Hct (39.0-53.0) % MCV (80.0-100.0) fL MCH (25.0-35.0) pg MCHC (31.0-37.0) g/dL RDW (11.5-15.5) % Plt Count (150-450) k/uL MPV Neutrophils % (Manual) % Band Neuts % (Manual) % Lymphocytes % (Manual) % Monocytes % (Manual) % Eosinophils % (Manual) % Neutrophils # (Manual) (1.3-7.7) k/uL Lymphocytes # (Manual) (1.0-4.8) k/uL Monocytes # (Manual) (0-1.0) k/uL Eosinophils # (Manual) (0-0.7) k/uL Nucleated RBCs (0-0) /100 WBC Manual Slide Review RBC Morphology Sodium (137-145) mmol/L Potassium (3.5-5.1) mmol/L Chloride (98-107) mmol/L Carbon Dioxide (22-30) mmol/L Anion Gap mmol/L BUN (9-20) mg/dL Creatinine (0.66-1.25) mg/dL Est GFR (CKD-EPI)AfAm (>60 ml/min/1.73 sqM) Est GFR (CKD-EPI)NonAf (>60 ml/min/1.73 sqM) Glucose (74-99) mg/dL Plasma Lactic Acid [place] 1.5 (0.7-2.0) mmol/L Calcium (8.4-10.2) mg/dL Total Bilirubin (0.2-1.3) mg/dL AST (17-59) U/L ALT (4-49) U/L Alkaline Phosphatase (38-126) U/L Total Protein (6.3-8.2) g/dL Albumin (3.5-5.0) g/dL Amylase (30-110) U/L Lipase (23-300) U/L Urine Color Urine Appearance (Clear) Urine pH (5.0-8.0) Ur Specific [place] (1.001-1.035) Urine Protein (Negative) Urine Glucose (UA) (Negative) Urine Ketones (Negative) Urine Blood (Negative) Urine Nitrite (Negative) Urine Bilirubin (Negative) Urine Urobilinogen (<2.0) mg/dL Ur Leukocyte Esterase (Negative) Disposition <Baldemar Lewis M - Last Filed: 03/01/23 20:41> Is patient prescribed a controlled substance at d/c from ED?: No <Keyla Rodriguez - Last Filed: 03/02/23 06:14> Clinical Impression: Gastritis Disposition: HOME SELF-CARE Condition: Stable Prescriptions: Sucralfate [Carafate] 1 gm PO ACHS #600 ml Sucralfate [Carafate] 1 gm PO ACHS #60 tab Pantoprazole [Protonix] 40 mg PO DAILY #30 tab Referrals: None,Stated [REFERRING] - 1-2 days
[2023-03-01 20:57] VITALS: RESP 18; TEMP 97.9
[2023-03-01 21:26] LABS: Appearance,Urine Clear (Clear); Bilirubin,Urine Negative (Negative); Blood,Urine Negative (Negative); Color,Urine Colorless; Glucose,Urine (UA) Negative (Negative); Ketones,Urine Negative (Negative); Leukocyte Esterase,Urine Negative (Negative); Nitrite,Urine Negative (Negative); PH, Urine 6.5 (5.0-8.0); Protein,Urine Negative (Negative); Specific Gravity,Urine 1.017 (1.001-1.035); Urobilinogen,Urine <2.0 mg/dL (<2.0)
[2023-03-01 21:33] LABS: HCT 49.4 % (39.0-53.0); HGB 16.2 gm/dL (13.0-17.5); MCH 30.1 pg (25.0-35.0); MCHC 32.9 g/dL (31.0-37.0); MCV 91.4 fL (80.0-100.0); Platelet Count 299 k/uL (150-450); WBC 11.6 k/uL (3.8-10.6)
[2023-03-01 21:35] LABS: ALT 43 U/L (4-49); AST 38 U/L (17-59); African American GFR (CKD) >90 (>60 ml/min/1.73 sqM); Albumin 4.3 g/dL (3.5-5.0); Alkaline Phosphatase 107 U/L (38-126); Amylase 86 U/L (30-110); Anion Gap 11 mmol/L; Blood Urea Nitrogen 25 mg/dL (9-20); Carbon Dioxide 24 mmol/L (22-30); Chloride 101 mmol/L (98-107); Glucose 134 mg/dL (74-99); Lipase 117 U/L (23-300); Non-African American GFR(CKD) >90 (>60 ml/min/1.73 sqM); Potassium 5.1 mmol/L (3.5-5.1); Sodium 136 mmol/L (137-145); Total Bilirubin 0.3 mg/dL (0.2-1.3); Total Protein 7.4 g/dL (6.3-8.2)
[2023-03-01 22:35] LABS: Band Neutrophils % 1 %; Eosinophils # (M) 0.12 k/uL (0-0.7); Lymphocytes # (M) 2.09 k/uL (1.0-4.8); Monocytes # (M) 1.39 k/uL (0-1.0); Neutrophils % (M) 68 %; Nucleated Red Blood Cells 0 /100 WBC (0-0); RBC Morphology Normal; Total Cells Counted 100
--- NOTE | 2023-03-01 23:17 | CT ---
EXAM: CT Abdomen and Pelvis With Intravenous Contrast CLINICAL HISTORY: ITS.REASON CT Reason: abdominal pain TECHNIQUE: Axial computed tomography images of the abdomen and pelvis with intravenous contrast. CTDI is 25.9 mGy and DLP is 1163.5 mGy-cm. This CT exam was performed using one or more of the following dose reduction techniques: automated exposure control, adjustment of the mA and/or kV according to patient size, and/or use of iterative reconstruction technique. COMPARISON: No relevant prior studies available. FINDINGS: Lung bases: Unremarkable. No mass. No consolidation. ABDOMEN: Liver: Hepatic steatosis. Gallbladder and bile ducts: Unremarkable. No calcified stones. No ductal dilation. Pancreas: Unremarkable. No mass. No ductal dilation. Spleen: Unremarkable. No splenomegaly. Adrenals: Unremarkable. No mass. Kidneys and ureters: Unremarkable. No hydronephrosis or delayed nephrogram. Stomach and bowel: Diverticulosis, without acute diverticulitis. No small bowel obstruction. No free intraperitoneal air. PELVIS: Appendix: No findings to suggest acute appendicitis. Bladder: Decompressed urinary bladder. Reproductive: Enlarged prostate gland measures 4.8 cm. ABDOMEN and PELVIS: Intraperitoneal space: Unremarkable. No free air. No significant fluid collection. Bones/joints: Degenerative changes of the spine. No acute fracture. No dislocation. Soft tissues: Unremarkable. Vasculature: Atherosclerotic changes of the aorta. No abdominal aortic aneurysm. Lymph nodes: Unremarkable. No enlarged lymph nodes. IMPRESSION: 1. No hydronephrosis or delayed nephrogram. 2. Hepatic steatosis. 3. Diverticulosis, without acute diverticulitis. No small bowel obstruction. No free intraperitoneal air. 4. Enlarged prostate gland.
[2023-03-02] MEDS ORDERED: MAG HYDROX/AL HYDROX/SIMETH 30 ML, HYOSCYAMINE ELIXIR 10 ML, LIDOCAINE 2% GLYDO JELLY 1... PO STA ×3 (02:05)
[2023-03-02] MEDS ORDERED: MORPHINE SULFATE 4 MG/ML SYRINGE IVP STA (02:06)
[2023-03-02] MEDS ORDERED: ONDANSETRON 4 MG/2 ML VIAL IVP STA (02:06)
[2023-03-02 06:44] VITALS: BP 150/88; PULSE 82
== END 2023-03-02 06:30 | disposition home or self-care (01) ==
LOC: EC 20:26
DX: K29.70 Gastritis, unspecified, without bleeding (principal); J44.9 Chronic obstructive pulmonary disease, unspecified; E78.5 Hyperlipidemia, unspecified; I25.10 Atherosclerotic heart disease of native coronary artery without angina pectoris; Z87.891 Personal history of nicotine dependence; Z79.51 Long term (current) use of inhaled steroids; Z79.899 Other long term (current) drug therapy
CPT/HCPCS: 36415; 80053; 82150; 83605; 83690; 85025; 81003; 74177; 99284; 96374; 96375; Q9967

== ENCOUNTER → 2023-11-30 | Outpatient (CLI) | payer MEDICARE ==
--- NOTE | 2023-11-30 17:51 | US ---
EXAMINATION TYPE: US Aorta Screening DATE OF EXAM: 11/30/2023 COMPARISON: CT & US CLINICAL INDICATION: Male, 68 years old with history of Z87.891 PERSONAL HISTORY OF NICOTINE DEPENDEN CE; AAA screening TECHNIQUE: Multiple sonographic images of the abdominal aorta are obtained. FINDINGS: EXAM MEASUREMENTS: Abdominal Aorta: Mid: 1.8 x 1.7 cm Distal: 1.8 x 1.6 cm Bifurcation: Right Iliac: 1.6 x 1.7 cm Left Iliac: 1.4 x 1.5 cm PARTS PULLER NOTES: No evidence of AAA- heavily calcified collazo- difficult to visualize- proximal portion gassed out IMPRESSION: No evidence for abdominal aortic aneurysm at this time. [facility], , 11/30/2023 5:49 PM
--- NOTE | 2023-11-30 17:53 | US ---
EXAMINATION TYPE: US scrotum with doppler. Grayscale and color Doppler Duplex imaging performed of t sarath scrotum. DATE OF EXAM: 11/30/2023 COMPARISON: NONE CLINICAL INDICATION: Male, 68 years old with history of Z87.891 PERSONAL HISTORY OF NICOTINE DEPENDEN CE; Pt states left testicle "feels weird" EXAM MEASUREMENTS: TESTICLES: Right Testicle: 3.7 x 2.1 x 2.8 cm Left Testicle: 3.7 x 1.9 x 3.0 cm EPIDIDYMIS HEAD: Right Epididymis: 1.2 cm Left Epididymis: 1.3 cm Doppler performed to assess for testicular vascularity; good bilateral color flow and waveforms are s een. There is no evidence of testicular torsion. Presence of hydroceles: Small amount of fluid surrounding left testicle Presence of varicoceles: No Small right epi head cyst= 0.4 x 0.4 x 0.5 cm Inferior to left testicle there appears to be a mobile area with calcification within= 1.3 x 0.9 x 1. 3 cm ?etiology IMPRESSION: 1 small left-sided hydrocele. 2. Small right-sided epididymal head cyst. 3. Calcified extratesticular partially calcified mobile lesion is of uncertain etiology. consult r ecommended. [facility], , 11/30/2023 5:50 PM
== END | disposition home or self-care (01) ==
LOC: RADUSWWP 09:27
PROVIDERS: ATTEND Family Medicine
DX: Z87.891 Personal history of nicotine dependence (principal); N49.2 Inflammatory disorders of scrotum; Z13.6 Encounter for screening for cardiovascular disorders; N43.3 Hydrocele, unspecified; N50.3 Cyst of epididymis
CPT/HCPCS: 76706; 76870; 93975